=== PATIENT | female | born 1985 | race African-American/Black ===

== ENCOUNTER 2020-07-20 22:56 | Emergency (ER) | payer MEDICAID ==
[~2020-07-20] VITALS: Ht 167.6 cm; Wt 74.8 kg
[2020-07-20] MEDS ORDERED: CIPROFLOXACIN 0.3% OPHT DROP 2.5 ML BOTTLE OP ONE (23:30)
[2020-07-20] MEDS ORDERED: IBUPROFEN 600 MG TABLET PO ONE (23:30)
[2020-07-20] MEDS ORDERED: CIPROFLOXACIN 0.3% OPHT DROP 2.5 ML BOTTLE ONE (23:39)
[2020-07-20] MEDS ORDERED: IBUPROFEN 600 MG TABLET ONE (23:39)
--- NOTE | 2020-07-21 00:01 | NUR ---
Patient discharged to home in stable condition. Written and verbal after care instructions given. Patient verbalizes understanding of instructions. Stressed follow up or return to ER for worsening s/s. Ambulated from ER with stable gait. All belongings with patient. VSS
[2020-07-21 00:03] VITALS: BP 117/62
== END 2020-07-21 00:06 | disposition home or self-care (01) ==
LOC: ER 22:58
DX: H92.02 Otalgia, left ear (principal); F41.0 Panic disorder [episodic paroxysmal anxiety]; F17.210 Nicotine dependence, cigarettes, uncomplicated
CPT/HCPCS: A4663

== ENCOUNTER 2021-10-17 05:34 | Emergency (ER) | payer MEDICAID ==
[~2021-10-17] VITALS: Ht 167.6 cm; Wt 81.6 kg
--- NOTE | 2021-10-17 06:29 | NUR ---
Dr. Fischer at bedside for MSE.
[2021-10-17] MEDS ORDERED: NEOM10DR11 OT (06:39)
[2021-10-17] MEDS ORDERED: HYDR-3980 PO (06:41)
--- NOTE | 2021-10-17 06:47 | NUR ---
Patient discharged to home in stable condition. Written and verbal after care instructions given. Patient verbalizes understanding of instructions. Stressed follow up or return to ER for worsening s/s. Patient out of ER with steady gait, no acute signs of distress, VSS, all belongings taken.
[2021-10-17 06:48] VITALS: BP 136/92
== END 2021-10-17 06:48 | disposition home or self-care (01) ==
LOC: ER 05:39
DX: H60.93 Unspecified otitis externa, bilateral (principal); F17.210 Nicotine dependence, cigarettes, uncomplicated
CPT/HCPCS: A4663

== ENCOUNTER 2025-08-17 19:06 | Emergency (ER) | payer MEDICAID ==
[~2025-08-17] VITALS: Ht 170.2 cm; Wt 95.3 kg
[~2025-08-17 19:06] MED LIST: HYDR-3980 PO; NEOM10DR11 OT
[2025-08-17 19:18] VITALS: BP 132/106
[2025-08-17] MEDS ORDERED: ACETAMINOPHEN 500 MG TABLET ONE (19:50)
[2025-08-17] MEDS: ACETAMINOPHEN 500 MG TABLET PO ONE (19:50)
[2025-08-17] MEDS ORDERED: HYDR-4209 PO (20:08)
[2025-08-17] MEDS ORDERED: ONDA4TAB11 PO (20:08)
[2025-08-17 20:41] VITALS: BP 132/106; TEMP 98; O2SAT 97
== END 2025-08-17 20:41 | disposition home or self-care (01) ==
LOC: ER 19:06
DX: S83.92XA Sprain of unspecified site of left knee, initial encounter (principal); M25.511 Pain in right shoulder; I51.9 Heart disease, unspecified; F17.210 Nicotine dependence, cigarettes, uncomplicated; W01.0XXA Fall on same level from slipping, tripping and stumbling without subsequent striking against object, initial encounter; Y93.89 Activity, other specified; Y92.89 Other specified places as the place of occurrence of the external cause; Y99.9 Unspecified external cause status
CPT/HCPCS: 73030; 73590; A4606; A4663; A9150